=== PATIENT | male | born 1985 | race Two or more races ===

== ENCOUNTER 2017-06-01 21:49 | Emergency (ER) | payer SELFPAY ==
[~2017-06-01] VITALS: Ht 170.2 cm; Wt 85.0 kg
[2017-06-02] MEDS ORDERED: KETOROLAC 30MG/ML VIAL IM ONE (04:00)
[2017-06-02] MEDS ORDERED: ONDANSETRON 4MG ODT PO ONE (04:00)
[2017-06-02 04:46] VITALS: BP 123/68
== END 2017-06-02 04:45 | disposition home or self-care (01) ==
LOC: ER 21:49
DX: H66.92 Otitis media, unspecified, left ear (principal); H60.92 Unspecified otitis externa, left ear; J45.909 Unspecified asthma, uncomplicated
CPT/HCPCS: 96372; 99283; J1885; Q0162